=== PATIENT | male | born 1960 | race Caucasian/White ===

== ENCOUNTER 2018-04-22 21:05 | Emergency (ER) | payer MEDICARE ==
[~2018-04-22] VITALS: Ht 182.9 cm; Wt 116.3 kg
[~2018-04-22 21:05] MED LIST: BENZ2AMP4 PO; CLON2TAB9 PO; HALO5AMP3 PO
[2018-04-22 21:10] VITALS: BP 136/92
[2018-04-22] MEDS: THIAMINE 100MG TABLET PO ONE ×2 (21:30→21:33)
[2018-04-22] MEDS ORDERED: THIAMINE 100MG TABLET ONE (21:32)
[2018-04-22 21:42] LABS: BASOPHILS # (AUTO) 0.04 x10^3/uL (0-0.1); BASOPHILS % (AUTO) 1 % (0-1); EOSINOPHILS % (AUTO) 2 % (1-7); LYMPHOCYTES # (AUTO) 2.58 x10^3/uL (1-3.4); LYMPHOCYTES % (AUTO) 47 % (22-44); MD NO; MEAN CORPUSCULAR HEMOGLOBIN 32.4 pg (27.5-34.5); MEAN CORPUSCULAR HGB CONC 33.4 g/dL (33.2-36.2); MEAN CORPUSCULAR VOLUME 96.9 fL (81-97); MONOCYTES # (AUTO) 0.56 x10^3/uL (0.2-0.8); MONOCYTES % (AUTO) 10 % (2-9); NEUTROPHILS # (AUTO) 2.18 x10^3/uL (1.8-6.8); NEUTROPHILS % (AUTO) 40 % (42-75); PLATELET COUNT 228 x10^3/uL (130-400); RED BLOOD COUNT 4.06 x10^6/uL (4.38-5.82); RED CELL DISTRIBUTION WIDTH 18.5 % (9.4-14.8)
[2018-04-22] MEDS ORDERED: IBUPROFEN 200 MG TABLET ONE (21:48)
[2018-04-22 21:52] LABS: ALANINE AMINOTRANSFERASE 24 U/L (12-78); ALBUMIN 3.2 g/dL (3.4-5.0); ANION GAP 8 mmol/L (5-15); CALCIUM 8.5 mg/dL (8.5-10.1); CHLORIDE 111 mmol/L (98-107); CREATININE 1.08 mg/dL (0.7-1.3)
[2018-04-22 21:54] LABS: ALKALINE PHOSPHATASE 92 U/L (45-117); BILIRUBIN,TOTAL 0.2 mg/dL (0.2-1.0); TOTAL PROTEIN 7.7 g/dL (6.4-8.2)
== END 2018-04-22 23:34 | disposition home or self-care (01) ==
LOC: ED 23:31
DX: F10.220 Alcohol dependence with intoxication, uncomplicated (principal)
CPT/HCPCS: 36415; 80053; 85025; 99284

== ENCOUNTER → 2018-11-11 | Outpatient (CLI) | payer MEDICARE ==
[~2018-11-11] MED LIST changes: +CARB200T PO; +CITA20TA9 PO; +DOXE100C PO; +HYDR-3241 PO; +LISI-170 PO; +MELO15TA24 PO; +METH20TA PO; +PREG25CA PO; +TIZA2TAB PO; +ZIPR80CA2 PO
[2018-11-11 11:56] LABS: ALBUMIN 3.6 g/dL (3.4-5.0); ANION GAP 6 mmol/L (5-15); CALCIUM 8.5 mg/dL (8.5-10.1); CHLORIDE 107 mmol/L (98-107)
[2018-11-11 11:59] LABS: ALANINE AMINOTRANSFERASE 15 U/L (12-78); ALKALINE PHOSPHATASE 64 U/L (45-117); BILIRUBIN,TOTAL 0.2 mg/dL (0.2-1.0); CREATININE 1.58 mg/dL (0.7-1.3); TOTAL PROTEIN 7.1 g/dL (6.4-8.2)
== END | disposition home or self-care (01) ==
LOC: STAR 10:53
PROVIDERS: ATTEND Orthopaedic Surgery
DX: Z01.818 Encounter for other preprocedural examination (principal); S82.62XP Displaced fracture of lateral malleolus of left fibula, subsequent encounter for closed fracture with malunion; X58.XXXD Exposure to other specified factors, subsequent encounter
CPT/HCPCS: 36415; 80053; 87081

== ENCOUNTER 2018-11-15 12:00 | Day surgery (SDC) | payer MEDICARE ==
[~2018-11-15] VITALS: Ht 182.9 cm; Wt 124.2 kg
[~2018-11-15 12:00] MED LIST changes: -TIZA2TAB PO
[2018-11-15 12:25] VITALS: BP 119/85
[2018-11-15] MEDS ORDERED: LACTATED RINGERS 1,000 ML IV SCH (12:29)
[2018-11-15] MEDS ORDERED: TIZA2TAB PO (12:32)
[2018-11-15] MEDS ORDERED: GABAPENTIN 300 MG CAPSULE ONE (14:05)
[2018-11-15] MEDS ORDERED: ONDANSETRON ODT 8 MG ONE (14:06)
[2018-11-15] MEDS ORDERED: DIAZEPAM 5 MG TABLET ONE (14:06)
[2018-11-15] MEDS ORDERED: BUPIVACAINE/PF 0.5% ONE ×2 (14:18→16:26)
[2018-11-15] MEDS ORDERED: BUPIVACAINE/PF-EPI 0.5% 1:200K ONE (14:18)
[2018-11-15] MEDS ORDERED: GABAPENTIN 300 MG CAPSULE PO ONE (14:30)
[2018-11-15] MEDS ORDERED: ONDANSETRON ODT 8 MG PO ONE (14:30)
[2018-11-15] MEDS ORDERED: DIAZEPAM 5 MG TABLET PO ONE (14:30)
[2018-11-15] MEDS ORDERED: MIDAZOLAM 1 MG/ML, 2ML ONE (14:44)
[2018-11-15] MEDS ORDERED: FENTANYL PF 250 MCG/5ML ONE (14:44)
[2018-11-15] MEDS ORDERED: ROCURONIUM 10 MG/ML,10ML ONE (14:59)
[2018-11-15] MEDS ORDERED: EPHEDRINE 50 MG/ML, 1ML ONE (14:59)
[2018-11-15] MEDS ORDERED: PROPOFOL 10 MG/ML, 20ML ONE (14:59)
[2018-11-15] MEDS ORDERED: VASOPRESSIN 20 UNIT/ML, 1ML ONE (14:59)
[2018-11-15] MEDS ORDERED: CEFAZOLIN 1,000 MG ONE (14:59)
[2018-11-15] MEDS ORDERED: SUCCINYLCHOLINE 20 MG/ML, 10ML ONE (14:59)
[2018-11-15] MEDS ORDERED: DEXAMETHASONE 4 MG/ML, 1ML ONE (14:59)
[2018-11-15] MEDS ORDERED: EPINEPHRINE 1 MG/ML, 1ML ONE (14:59)
[2018-11-15] MEDS ORDERED: OXYcodone 5 MG/5 ML ORAL.SOL UDC PO PRN (16:00)
[2018-11-15] MEDS ORDERED: PROMETHAZINE 25 MG/ML, 1ML IV PRN (16:00)
[2018-11-15] MEDS ORDERED: HYDROmorphone 2 MG/ML, 1ML IVPush PRN (16:00)
[2018-11-15] MEDS ORDERED: ALBUTEROL/IPRATROPIUM 2.5MG/0.5MG, 3 ML NPPB PRN (16:00)
[2018-11-15] MEDS ORDERED: ONDANSETRON 2MG/ML, 2ML IV PRN (16:00)
[2018-11-15] MEDS ORDERED: hydrALAzine 20 MG/ML, 1ML IV PRN (16:00)
[2018-11-15] MEDS ORDERED: MIDAZOLAM 1 MG/ML, 2ML IV PRN (16:00)
[2018-11-15] MEDS ORDERED: ACETAMINOPHEN 325 MG TABLET PO PRN (16:00)
[2018-11-15] MEDS ORDERED: FENTANYL PF 100 MCG/2ML IV PRN (16:00)
[2018-11-15] MEDS ORDERED: SCOPOLAMINE PATCH, 1.5MG PATCH.TD72 TD PRN (16:00)
[2018-11-15] MEDS ORDERED: MEPERIDINE/PF 25MG/0.5ML IVPush PRN (16:00)
[2018-11-15] MEDS ORDERED: OXYcodone 5 MG/5 ML ORAL.SOL UDC ONE (17:10)
== END 2018-11-15 20:35 | disposition home or self-care (01) ==
LOC: OUT 12:00
PROVIDERS: ATTEND Orthopaedic Surgery
DX: S82.62XP Displaced fracture of lateral malleolus of left fibula, subsequent encounter for closed fracture with malunion (principal); S93.492D Sprain of other ligament of left ankle, subsequent encounter; S93.412D Sprain of calcaneofibular ligament of left ankle, subsequent encounter; M66.372 Spontaneous rupture of flexor tendons, left ankle and foot; M25.872 Other specified joint disorders, left ankle and foot; F41.8 Other specified anxiety disorders; F90.9 Attention-deficit hyperactivity disorder, unspecified type; I10 Essential (primary) hypertension; E66.9 Obesity, unspecified; Z68.37 Body mass index [BMI] 37.0-37.9, adult; Z79.891 Long term (current) use of opiate analgesic; Z79.899 Other long term (current) drug therapy; Z87.891 Personal history of nicotine dependence; Z98.890 Other specified postprocedural states; Z82.49 Family history of ischemic heart disease and other diseases of the circulatory system; Z79.1 Long term (current) use of non-steroidal anti-inflammatories (NSAID); X58.XXXD Exposure to other specified factors, subsequent encounter; Y93.89 Activity, other specified; Y92.89 Other specified places as the place of occurrence of the external cause; Y99.8 Other external cause status
CPT/HCPCS: 27698; 27792; 28200; 29898; 64445; 64447; 73600; 76000; C1713; J0171; J0330; J0690; J1100; J2250; J2704; J3010; J7120; Q0162

== ENCOUNTER 2018-11-29 14:46 | Day surgery (SDC) | payer MEDICARE ==
[~2018-11-29] VITALS: Ht 182.9 cm; Wt 126.8 kg
[~2018-11-29 14:46] MED LIST changes: +TIZA2TAB PO
[2018-11-29 15:35] VITALS: BP 146/93
[2018-11-29] MEDS ORDERED: LACTATED RINGERS 1,000 ML IV SCH (15:37)
[2018-11-29] MEDS ORDERED: OXYC5CAP2 PO (15:42)
[2018-11-29] MEDS ORDERED: CLON1TAB23 PO (15:42)
[2018-11-29] MEDS ORDERED: TIZA2TAB PO (15:44)
[2018-11-29] MEDS ORDERED: ZIPR80CA3 PO (15:44)
[2018-11-29] MEDS ORDERED: TRAM50TA2 PO (15:44)
[2018-11-29] MEDS ORDERED: ACETAMINOPHEN 500 MG TABLET PO ONE (16:00)
[2018-11-29] MEDS ORDERED: PLEASE ENTER HEIGHT AND WEIGHT MC SCH (16:00)
[2018-11-29] MEDS ORDERED: GABAPENTIN 300 MG CAPSULE PO ONE (16:00)
[2018-11-29] MEDS ORDERED: FENTANYL PF 100 MCG/2ML ONE ×5 (16:27→19:49)
[2018-11-29] MEDS ORDERED: MIDAZOLAM 1 MG/ML, 2ML ONE (16:27)
[2018-11-29] MEDS ORDERED: PROPOFOL 10 MG/ML, 20ML ONE (16:29)
[2018-11-29] MEDS ORDERED: SODIUM CHLORIDE 0.9% PF 10ML ONE (16:30)
[2018-11-29] MEDS ORDERED: CEFAZOLIN 1,000 MG ONE ×2 (16:30)
[2018-11-29] MEDS ORDERED: BUPIVACAINE/PF 0.5% ONE (16:33)
[2018-11-29] MEDS ORDERED: ROCURONIUM 10 MG/ML,10ML ONE (17:09)
[2018-11-29] MEDS ORDERED: GLYCOPYRROLATE 0.2MG/1ML, 5ML ONE (17:09)
[2018-11-29] MEDS ORDERED: NEOSTIGMINE 1 MG/ML, 10ML ONE (17:09)
[2018-11-29] MEDS ORDERED: ONDANSETRON 2MG/ML, 2ML IV PRN (17:30)
[2018-11-29] MEDS ORDERED: LABETALOL 5MG/ML, 20ML IV PRN (17:30)
[2018-11-29] MEDS ORDERED: MORPHINE SULFATE 4 MG/ML, 1ML IVPush PRN (17:30)
[2018-11-29] MEDS ORDERED: PROMETHAZINE 12.5 MG SUPP PR PRN (17:30)
[2018-11-29] MEDS ORDERED: hydrALAzine 20 MG/ML, 1ML IV PRN (17:30)
[2018-11-29] MEDS ORDERED: ONDANSETRON ODT 8 MG PO PRN (17:30)
[2018-11-29] MEDS ORDERED: PROMETHAZINE 25 MG SUPP PR PRN (17:30)
[2018-11-29] MEDS ORDERED: PROMETHAZINE 25 MG/ML, 1ML IM PRN ×2 (17:30)
[2018-11-29] MEDS ORDERED: PROMETHAZINE 25 MG/ML, 1ML IV PRN (17:30)
[2018-11-29] MEDS ORDERED: FENTANYL PF 250 MCG/5ML ONE (17:46)
[2018-11-29] MEDS ORDERED: ROPIvacaine/PF 0.5%, 30 ML ONE (18:27)
[2018-11-29] MEDS ORDERED: OXYcodone 5 MG/5 ML ORAL.SOL UDC ONE (18:59)
[2018-11-29] MEDS ORDERED: MEPERIDINE/PF 25MG/ML,1ML ONE ×2 (19:00→19:19)
[2018-11-29] MEDS: MEPERIDINE/PF 25MG/0.5ML IVPush PRN ×2 (19:03→19:20)
[2018-11-29] MEDS: FENTANYL PF 100 MCG/2ML IV PRN ×5 (19:03→19:52)
[2018-11-29] MEDS ORDERED: HYDROmorphone 2 MG/ML, 1ML ONE (19:09)
[2018-11-29] MEDS: HYDROmorphone 2 MG/ML, 1ML IVPush PRN ×4 (19:10→19:47)
[2018-11-29] MEDS: OXYcodone 5 MG/5 ML ORAL.SOL UDC PO PRN ×2 (19:29→22:20)
== END 2018-11-29 23:04 | disposition home or self-care (01) ==
LOC: OR 14:46 → 4NOR 20:19 → OR 23:04
PROVIDERS: ATTEND Orthopaedic Surgery
DX: T84.223A Displacement of internal fixation device of bones of foot and toes, initial encounter (principal); S93.432D Sprain of tibiofibular ligament of left ankle, subsequent encounter; S93.422D Sprain of deltoid ligament of left ankle, subsequent encounter; I10 Essential (primary) hypertension; F41.8 Other specified anxiety disorders; F90.9 Attention-deficit hyperactivity disorder, unspecified type; F10.10 Alcohol abuse, uncomplicated; Z79.891 Long term (current) use of opiate analgesic; Z79.899 Other long term (current) drug therapy; Z82.49 Family history of ischemic heart disease and other diseases of the circulatory system; Z87.891 Personal history of nicotine dependence; Z98.890 Other specified postprocedural states; W18.39XD Other fall on same level, subsequent encounter; Y83.8 Other surgical procedures as the cause of abnormal reaction of the patient, or of later complication, without mention of misadventure at the time of the procedure
CPT/HCPCS: 27698; 27829; 64445; 64447; 73600; 76000; 87070; 87075; 87205; C1713; J0690; J1170; J2175; J2250; J2405; J2704; J2710; J2795; J3010; J7120; 87076; G0378

== ENCOUNTER 2019-01-10 14:50 | Inpatient (IN) | payer MEDICARE ==
[~2019-01-10] VITALS: Ht 182.9 cm; Wt 122.5 kg
[~2019-01-10 14:50] MED LIST changes: +CLON1TAB23 PO; +OXYC5CAP2 PO; -TIZA2TAB PO; +TIZA2TAB2 PO; +TRAM50TA2 PO; +ZIPR80CA3 PO
[2019-01-10] MEDS ORDERED: LACTATED RINGERS 1,000 ML IV SCH (15:19)
[2019-01-10] MEDS ORDERED: hydrALAzine 20 MG/ML, 1ML IV ONE ×2 (16:30→16:45)
[2019-01-10] MEDS: hydrALAzine 20 MG/ML, 1ML IV PRN ×3 (16:30→16:59)
[2019-01-10] MEDS ORDERED: HYDROmorphone 2 MG/ML, 1ML ONE ×3 (16:55→21:02)
[2019-01-10] MEDS: HYDROmorphone 1 MG/ML, 1ML INJ IV PRN ×4 (16:56→17:41)
[2019-01-10] MEDS ORDERED: FENTANYL PF 250 MCG/5ML ONE (17:58)
[2019-01-10] MEDS ORDERED: MIDAZOLAM 1 MG/ML, 2ML ONE (17:58)
[2019-01-10] MEDS ORDERED: PHENYLEPHRINE 10 MG/ML ONE (18:18)
[2019-01-10] MEDS ORDERED: EPHEDRINE 50 MG/ML, 1ML ONE (18:18)
[2019-01-10] MEDS ORDERED: SUCCINYLCHOLINE 20 MG/ML, 10ML ONE (18:18)
[2019-01-10] MEDS ORDERED: ROCURONIUM 10 MG/ML,10ML ONE (18:18)
[2019-01-10] MEDS ORDERED: HYDROmorphone 2 MG/ML, 1ML IV PRN (19:00)
[2019-01-10] MEDS ORDERED: hydrALAzine 20 MG/ML, 1ML IV PRN (19:30)
[2019-01-10] MEDS ORDERED: ACETAMINOPHEN 325 MG TABLET PO PRN (19:30)
[2019-01-10] MEDS ORDERED: PROMETHAZINE 25 MG/ML, 1ML IV PRN (19:30)
[2019-01-10] MEDS ORDERED: OXYcodone 5 MG/5 ML ORAL.SOL UDC PO PRN (19:30)
[2019-01-10] MEDS ORDERED: KETOROLAC 30 MG/1 ML IV PRN (19:30)
[2019-01-10] MEDS ORDERED: DIAZEPAM 5 MG/ML, 2ML IVPush PRN (19:30)
[2019-01-10] MEDS ORDERED: ALBUTEROL SULFATE 2.5 MG/3 ML NPPB PRN (19:30)
[2019-01-10] MEDS ORDERED: MEPERIDINE/PF 25MG/0.5ML IVPush PRN (19:30)
[2019-01-10] MEDS ORDERED: LABETALOL 5MG/ML, 20ML IV PRN (19:30)
[2019-01-10] MEDS ORDERED: FENTANYL PF 100 MCG/2ML ONE ×2 (19:42→20:21)
[2019-01-10] MEDS ORDERED: BUPIVACAINE/PF 0.5% ONE (19:44)
[2019-01-10] MEDS ORDERED: PROPOFOL 10 MG/ML, 20ML ONE (19:45)
[2019-01-10] MEDS ORDERED: LIDOCAINE-MPF 2% ,5ML ONE (19:45)
[2019-01-10] MEDS ORDERED: DEXAMETHASONE 4 MG/ML, 1ML ONE (19:45)
[2019-01-10] MEDS ORDERED: CEFAZOLIN 1,000 MG ONE (19:45)
[2019-01-10] MEDS ORDERED: ONDANSETRON 2MG/ML, 2ML ONE (19:45)
[2019-01-10] MEDS: FENTANYL PF 100 MCG/2ML IV PRN ×2 (20:25→20:35)
[2019-01-10] MEDS: HYDROmorphone 2 MG/ML, 1ML IVPush PRN ×5 (20:27→21:05)
[2019-01-10] MEDS ORDERED: MEPERIDINE/PF 25MG/ML,1ML ONE (20:45)
[2019-01-10] MEDS ORDERED: OXYcodone 5 MG/5 ML ORAL.SOL UDC ONE (20:45)
[2019-01-10] MEDS: LISINOPRIL 20 MG TABLET PO SCH (22:03)
[2019-01-10] MEDS ORDERED: ZIPRASIDONE 40MG CAPSULE PO SCH ×2 (22:11→22:15)
[2019-01-10] MEDS ORDERED: morphine SULFATE 10 MG/ML, 1ML ONE (22:19)
[2019-01-10] MEDS: morphine SULFATE 10 MG/ML, 1ML IV PRN (22:25)
[2019-01-10] MEDS ORDERED: PHARMACOKINETIC MONITORING MC PRN (22:30)
[2019-01-10] MEDS ORDERED: OXYcodone IR 5MG TABLET PO PRN (22:30)
[2019-01-10] MEDS ORDERED: VANCOMYCIN PER PHARMACY MC PRN (22:30)
[2019-01-10] MEDS: OXYcodone 5 MG/5 ML ORAL.SOL UDC PO PRN (22:48)
[2019-01-10] MEDS: KETOROLAC 30 MG/1 ML IV SCH (22:49)
[2019-01-10] MEDS: CARBAMAZEPINE 200 MG TABLET PO SCH (22:49)
[2019-01-10] MEDS: VANCOMYCIN 2,000 MG in SODIUM CHLORIDE 0.9% 500 ML IV SCH (22:59)
[2019-01-10] MEDS ORDERED: ONDANSETRON 2MG/ML, 2ML IV PRN (23:00)
[2019-01-10] MEDS ORDERED: PREG50CA PO (23:28)
[2019-01-10] MEDS ORDERED: TRAM50TA2 PO (23:28)
[2019-01-11] MEDS: morphine SULFATE 10 MG/ML, 1ML IV PRN ×7 (00:05→22:21)
[2019-01-11 00:06] VITALS: BP 146/90
[2019-01-11] MEDS: OXYcodone 5 MG/5 ML ORAL.SOL UDC PO PRN ×5 (03:46→21:00)
[2019-01-11 04:21] VITALS: BP 105/58
[2019-01-11 06:21] LABS: CREATININE 1.14 mg/dL (0.7-1.3)
[2019-01-11 06:28] VITALS: BP 102/65
[2019-01-11] MEDS: KETOROLAC 30 MG/1 ML IV SCH ×2 (06:33→14:59)
[2019-01-11] MEDS ORDERED: ZIPRASIDONE 20MG CAPSULE PO PRN (07:30)
[2019-01-11] MEDS: SODIUM CHLORIDE FLUSH 10ML SYR IVF SCH ×2 (09:19→20:55)
[2019-01-11] MEDS: PREGABALIN 25 MG CAPSULE PO SCH ×2 (09:19→20:56)
[2019-01-11] MEDS: TIZANIDINE 2MG TABLET PO SCH ×3 (09:20→20:58)
[2019-01-11] MEDS: METHYLPHENIDATE 5 MG TABLET PO SCH ×2 (09:20→20:57)
[2019-01-11] MEDS: CITALOPRAM 20 MG TABLET PO SCH (09:21)
[2019-01-11] MEDS: CARBAMAZEPINE 200 MG TABLET PO SCH ×2 (09:21→20:58)
[2019-01-11 10:02] LABS: BASOPHILS # (AUTO) 0.01 x10^3/uL (0-0.1); BASOPHILS % (AUTO) 0 % (0-1); EOSINOPHILS % (AUTO) 0 % (1-7); LYMPHOCYTES # (AUTO) 1.01 x10^3/uL (1-3.4); LYMPHOCYTES % (AUTO) 19 % (22-44); MD NO; MEAN CORPUSCULAR HEMOGLOBIN 29.9 pg (27.5-34.5); MEAN CORPUSCULAR HGB CONC 32.4 g/dL (33.2-36.2); MEAN CORPUSCULAR VOLUME 92.4 fL (81-97); MEAN PLATELET VOLUME 7.5 fL (7.4-10.4); MONOCYTES # (AUTO) 0.54 x10^3/uL (0.2-0.8); MONOCYTES % (AUTO) 10 % (2-9); NEUTROPHILS # (AUTO) 3.81 x10^3/uL (1.8-6.8); NEUTROPHILS % (AUTO) 71 % (42-75); PLATELET COUNT 248 x10^3/uL (130-400); RED BLOOD COUNT 3.26 x10^6/uL (4.38-5.82)
[2019-01-11 10:27] LABS: ALBUMIN 2.8 g/dL (3.4-5.0); ANION GAP 10 mmol/L (5-15); CALCIUM 8.4 mg/dL (8.5-10.1); CHLORIDE 107 mmol/L (98-107)
[2019-01-11 10:29] LABS: ALANINE AMINOTRANSFERASE 12 U/L (12-78); ALKALINE PHOSPHATASE 87 U/L (45-117); BILIRUBIN,TOTAL 0.6 mg/dL (0.2-1.0); CREATININE 1.14 mg/dL (0.7-1.3); TOTAL PROTEIN 6.3 g/dL (6.4-8.2)
[2019-01-11 12:14] LABS: HCT (SEDRATE) 32.9 % (39.2-51.8)
[2019-01-11 12:25] VITALS: BP 130/84
[2019-01-11] MEDS: VANCOMYCIN 2,000 MG in SODIUM CHLORIDE 0.9% 500 ML IV SCH (17:05)
[2019-01-11 18:40] VITALS: BP 148/79
[2019-01-11] MEDS: DOXEPIN 100 MG CAPSULE PO SCH (20:57)
[2019-01-11] MEDS: LISINOPRIL 20 MG TABLET PO SCH (20:57)
[2019-01-12 00:36] VITALS: BP 130/76
[2019-01-12] MEDS: OXYcodone 5 MG/5 ML ORAL.SOL UDC PO PRN ×5 (00:55→21:02)
[2019-01-12 07:48] VITALS: BP 157/94
[2019-01-12] MEDS: PREGABALIN 25 MG CAPSULE PO SCH ×2 (08:11→21:01)
[2019-01-12] MEDS: TIZANIDINE 2MG TABLET PO SCH ×3 (08:11→21:00)
[2019-01-12] MEDS: MELOXICAM 15 MG TABLET PO SCH (08:12)
[2019-01-12] MEDS: CARBAMAZEPINE 200 MG TABLET PO SCH ×2 (08:12→21:01)
[2019-01-12] MEDS: SODIUM CHLORIDE FLUSH 10ML SYR IVF SCH ×2 (08:12→21:00)
[2019-01-12] MEDS: METHYLPHENIDATE 5 MG TABLET PO SCH ×2 (08:12→21:00)
[2019-01-12] MEDS: CITALOPRAM 20 MG TABLET PO SCH (08:12)
[2019-01-12] MEDS: VANCOMYCIN 2,000 MG in SODIUM CHLORIDE 0.9% 500 ML IV SCH (11:08)
[2019-01-12 13:47] VITALS: BP 145/87
[2019-01-12] MEDS: morphine SULFATE 10 MG/ML, 1ML IV PRN ×3 (14:20→22:32)
[2019-01-12 19:59] VITALS: BP 130/77
[2019-01-12] MEDS ORDERED: TIZANIDINE 4MG TABLET ONE (20:57)
[2019-01-12] MEDS: DOXEPIN 100 MG CAPSULE PO SCH (21:01)
[2019-01-12] MEDS: LISINOPRIL 20 MG TABLET PO SCH (21:01)
[2019-01-13 02:08] VITALS: BP 148/84
[2019-01-13 04:40] LABS: BASOPHILS # (AUTO) 0.03 x10^3/uL (0-0.1); BASOPHILS % (AUTO) 1 % (0-1); EOSINOPHILS # (AUTO) 0.14 x10^3/uL (0-0.4); EOSINOPHILS % (AUTO) 3 % (1-7); LYMPHOCYTES # (AUTO) 1.18 x10^3/uL (1-3.4); LYMPHOCYTES % (AUTO) 26 % (22-44); MD NO; MEAN CORPUSCULAR HEMOGLOBIN 30.9 pg (27.5-34.5); MEAN CORPUSCULAR VOLUME 93.8 fL (81-97); MEAN PLATELET VOLUME 7.2 fL (7.4-10.4); MONOCYTES # (AUTO) 0.55 x10^3/uL (0.2-0.8); MONOCYTES % (AUTO) 12 % (2-9); NEUTROPHILS # (AUTO) 2.63 x10^3/uL (1.8-6.8); NEUTROPHILS % (AUTO) 58 % (42-75); PLATELET COUNT 297 x10^3/uL (130-400); RED BLOOD COUNT 3.26 x10^6/uL (4.38-5.82); RED CELL DISTRIBUTION WIDTH 15.1 % (9.4-14.8)
[2019-01-13 04:46] LABS: ALBUMIN 2.6 g/dL (3.4-5.0); ANION GAP 6 mmol/L (5-15); CALCIUM 8.7 mg/dL (8.5-10.1); CHLORIDE 106 mmol/L (98-107); CREATININE 0.91 mg/dL (0.7-1.3)
[2019-01-13] MEDS: VANCOMYCIN 2,000 MG in SODIUM CHLORIDE 0.9% 500 ML IV SCH (04:54)
[2019-01-13] MEDS: OXYcodone 5 MG/5 ML ORAL.SOL UDC PO PRN ×5 (05:02→21:29)
[2019-01-13 07:15] VITALS: BP 143/95
[2019-01-13] MEDS: TIZANIDINE 2MG TABLET PO SCH ×3 (08:04→20:31)
[2019-01-13] MEDS: METHYLPHENIDATE 5 MG TABLET PO SCH ×2 (08:04→20:56)
[2019-01-13] MEDS: PREGABALIN 25 MG CAPSULE PO SCH ×2 (08:04→20:31)
[2019-01-13] MEDS: MELOXICAM 15 MG TABLET PO SCH (08:04)
[2019-01-13] MEDS: CITALOPRAM 20 MG TABLET PO SCH (08:04)
[2019-01-13] MEDS: SODIUM CHLORIDE FLUSH 10ML SYR IVF SCH ×2 (08:04→20:33)
[2019-01-13] MEDS: CARBAMAZEPINE 200 MG TABLET PO SCH ×2 (08:04→20:31)
[2019-01-13] MEDS ORDERED: POTASSIUM CHLORIDE 20 MEQ TAB.ER.PRT PO ONE (08:30)
[2019-01-13] MEDS: AMPICILLIN/SULBACTAM 3 GM in SODIUM CHLORIDE 0.9% 100 ML IV SCH ×3 (11:42→23:31)
[2019-01-13 12:25] VITALS: BP 139/87
[2019-01-13] MEDS: DOXEPIN 100 MG CAPSULE PO SCH (20:30)
[2019-01-13 20:36] VITALS: BP 156/94
[2019-01-13] MEDS: LISINOPRIL 20 MG TABLET PO SCH (20:39)
[2019-01-14 01:41] VITALS: BP 137/87
[2019-01-14] MEDS: OXYcodone 5 MG/5 ML ORAL.SOL UDC PO PRN ×5 (03:53→20:50)
[2019-01-14] MEDS: AMPICILLIN/SULBACTAM 3 GM in SODIUM CHLORIDE 0.9% 100 ML IV SCH ×4 (05:39→23:41)
[2019-01-14 07:05] VITALS: BP 163/103
[2019-01-14] MEDS: PREGABALIN 25 MG CAPSULE PO SCH ×2 (08:42→20:48)
[2019-01-14] MEDS: CITALOPRAM 20 MG TABLET PO SCH (08:42)
[2019-01-14] MEDS: TIZANIDINE 2MG TABLET PO SCH ×3 (08:42→20:49)
[2019-01-14] MEDS: CARBAMAZEPINE 200 MG TABLET PO SCH ×2 (08:43→20:49)
[2019-01-14] MEDS: MELOXICAM 15 MG TABLET PO SCH (08:43)
[2019-01-14] MEDS: METHYLPHENIDATE 5 MG TABLET PO SCH ×2 (08:51→14:16)
[2019-01-14] MEDS: SODIUM CHLORIDE FLUSH 10ML SYR IVF SCH ×2 (09:00→20:55)
[2019-01-14 13:50] VITALS: BP 143/89
[2019-01-14] MEDS ORDERED: POLYETHYLENE GLYCOL 17 GM PACKET PO PRN (14:00)
[2019-01-14] MEDS ORDERED: MAGNESIUM HYDROXIDE 8%, 30ML UDC PO PRN (14:00)
[2019-01-14] MEDS ORDERED: BISACODYL 10 MG SUPP PR PRN (14:00)
[2019-01-14] MEDS ORDERED: LACTULOSE 20 GM/30 ML UDC PO PRN (14:00)
[2019-01-14] MEDS ORDERED: MAGNESIUM CITRATE 300ML ORAL SOL PO PRN ×2 (14:00)
[2019-01-14] MEDS: SENNA/DOCUSATE TABLET PO PRN (14:16)
[2019-01-14 19:42] VITALS: BP 154/95
[2019-01-14] MEDS: DOXEPIN 100 MG CAPSULE PO SCH (20:48)
[2019-01-14] MEDS: LISINOPRIL 20 MG TABLET PO SCH (20:49)
[2019-01-15] MEDS: OXYcodone 5 MG/5 ML ORAL.SOL UDC PO PRN ×5 (01:28→20:09)
[2019-01-15 01:30] VITALS: BP 133/82
[2019-01-15 05:00] LABS: BASOPHILS # (AUTO) 0.03 x10^3/uL (0-0.1); BASOPHILS % (AUTO) 1 % (0-1); EOSINOPHILS # (AUTO) 0.13 x10^3/uL (0-0.4); EOSINOPHILS % (AUTO) 3 % (1-7); LYMPHOCYTES % (AUTO) 29 % (22-44); MD NO; MEAN CORPUSCULAR HEMOGLOBIN 30.9 pg (27.5-34.5); MEAN CORPUSCULAR HGB CONC 33.3 g/dL (33.2-36.2); MEAN PLATELET VOLUME 7.7 fL (7.4-10.4); MONOCYTES # (AUTO) 0.46 x10^3/uL (0.2-0.8); MONOCYTES % (AUTO) 11 % (2-9); NEUTROPHILS # (AUTO) 2.38 x10^3/uL (1.8-6.8); NEUTROPHILS % (AUTO) 57 % (42-75); PLATELET COUNT 312 x10^3/uL (130-400); RED BLOOD COUNT 3.39 x10^6/uL (4.38-5.82); RED CELL DISTRIBUTION WIDTH 15.1 % (9.4-14.8)
[2019-01-15 05:10] LABS: ALBUMIN 2.8 g/dL (3.4-5.0); ANION GAP 5 mmol/L (5-15); CALCIUM 9.1 mg/dL (8.5-10.1); CHLORIDE 107 mmol/L (98-107)
[2019-01-15 05:14] LABS: ALANINE AMINOTRANSFERASE 10 U/L (12-78); ALKALINE PHOSPHATASE 123 U/L (45-117); BILIRUBIN,TOTAL 0.4 mg/dL (0.2-1.0); CREATININE 1.05 mg/dL (0.7-1.3); TOTAL PROTEIN 6.4 g/dL (6.4-8.2)
[2019-01-15] MEDS: AMPICILLIN/SULBACTAM 3 GM in SODIUM CHLORIDE 0.9% 100 ML IV SCH ×4 (05:21→23:29)
[2019-01-15 08:39] VITALS: BP 145/78
[2019-01-15] MEDS: SODIUM CHLORIDE FLUSH 10ML SYR IVF SCH ×2 (09:00→20:08)
[2019-01-15] MEDS: ENOXAPARIN 40 MG/0.4 ML SQ SCH (09:17)
[2019-01-15] MEDS: METHYLPHENIDATE 5 MG TABLET PO SCH ×2 (09:17→20:11)
[2019-01-15] MEDS: CARBAMAZEPINE 200 MG TABLET PO SCH ×2 (09:18→20:18)
[2019-01-15] MEDS: TIZANIDINE 2MG TABLET PO SCH ×3 (09:18→20:09)
[2019-01-15] MEDS: PREGABALIN 25 MG CAPSULE PO SCH ×2 (09:18→20:18)
[2019-01-15] MEDS: MELOXICAM 15 MG TABLET PO SCH (09:18)
[2019-01-15] MEDS: CITALOPRAM 20 MG TABLET PO SCH (09:18)
[2019-01-15 14:02] VITALS: BP 153/102
[2019-01-15 14:47] VITALS: BP 139/88
[2019-01-15 19:06] VITALS: BP 130/75
[2019-01-15] MEDS: LISINOPRIL 20 MG TABLET PO SCH (20:09)
[2019-01-15] MEDS: DOXEPIN 100 MG CAPSULE PO SCH (20:09)
[2019-01-16] MEDS: OXYcodone 5 MG/5 ML ORAL.SOL UDC PO PRN ×6 (00:11→21:35)
[2019-01-16 01:37] VITALS: BP 121/80
[2019-01-16 05:11] LABS: ALBUMIN 2.6 g/dL (3.4-5.0); ANION GAP 6 mmol/L (5-15); CALCIUM 8.5 mg/dL (8.5-10.1); CHLORIDE 106 mmol/L (98-107)
[2019-01-16 05:13] LABS: HCT (SEDRATE) 30.6 % (39.2-51.8)
[2019-01-16 05:17] LABS: BASOPHILS # (AUTO) 0.04 x10^3/uL (0-0.1); BASOPHILS % (AUTO) 1 % (0-1); EOSINOPHILS # (AUTO) 0.17 x10^3/uL (0-0.4); EOSINOPHILS % (AUTO) 4 % (1-7); LYMPHOCYTES # (AUTO) 1.45 x10^3/uL (1-3.4); LYMPHOCYTES % (AUTO) 35 % (22-44); MD NO; MEAN CORPUSCULAR HEMOGLOBIN 30.9 pg (27.5-34.5); MEAN CORPUSCULAR HGB CONC 33.2 g/dL (33.2-36.2); MONOCYTES # (AUTO) 0.41 x10^3/uL (0.2-0.8); MONOCYTES % (AUTO) 10 % (2-9); NEUTROPHILS # (AUTO) 2.05 x10^3/uL (1.8-6.8); NEUTROPHILS % (AUTO) 50 % (42-75); PLATELET COUNT 312 x10^3/uL (130-400); RED BLOOD COUNT 3.28 x10^6/uL (4.38-5.82); RED CELL DISTRIBUTION WIDTH 15.6 % (9.4-14.8)
[2019-01-16 05:19] LABS: ALANINE AMINOTRANSFERASE 11 U/L (12-78); ALKALINE PHOSPHATASE 112 U/L (45-117); BILIRUBIN,TOTAL 0.4 mg/dL (0.2-1.0); CREATININE 0.98 mg/dL (0.7-1.3); TOTAL PROTEIN 6.2 g/dL (6.4-8.2)
[2019-01-16] MEDS: AMPICILLIN/SULBACTAM 3 GM in SODIUM CHLORIDE 0.9% 100 ML IV SCH ×4 (05:34→23:17)
[2019-01-16 06:44] VITALS: BP 159/107
[2019-01-16] MEDS: CITALOPRAM 20 MG TABLET PO SCH (08:29)
[2019-01-16] MEDS: MELOXICAM 15 MG TABLET PO SCH (08:31)
[2019-01-16] MEDS: PREGABALIN 25 MG CAPSULE PO SCH ×2 (08:31→21:34)
[2019-01-16] MEDS: TIZANIDINE 2MG TABLET PO SCH ×3 (08:31→21:35)
[2019-01-16] MEDS: METHYLPHENIDATE 5 MG TABLET PO SCH ×2 (08:32→15:47)
[2019-01-16] MEDS: ENOXAPARIN 40 MG/0.4 ML SQ SCH (08:32)
[2019-01-16] MEDS: CARBAMAZEPINE 200 MG TABLET PO SCH ×2 (08:32→21:34)
[2019-01-16] MEDS: SODIUM CHLORIDE FLUSH 10ML SYR IVF SCH ×2 (08:33→21:34)
[2019-01-16] MEDS ORDERED: TIZANIDINE 4MG TABLET ONE (08:39)
[2019-01-16 08:47] VITALS: BP 154/88
[2019-01-16 12:32] VITALS: BP 125/73
[2019-01-16 18:43] VITALS: BP 152/104
[2019-01-16] MEDS: DOXEPIN 100 MG CAPSULE PO SCH (21:34)
[2019-01-16] MEDS: LISINOPRIL 20 MG TABLET PO SCH (21:34)
[2019-01-17 00:15] VITALS: BP 136/84
[2019-01-17] MEDS: OXYcodone 5 MG/5 ML ORAL.SOL UDC PO PRN ×6 (01:48→22:07)
[2019-01-17] MEDS: AMPICILLIN/SULBACTAM 3 GM in SODIUM CHLORIDE 0.9% 100 ML IV SCH ×4 (05:03→23:37)
[2019-01-17 07:26] VITALS: BP 146/90
[2019-01-17] MEDS: METHYLPHENIDATE 5 MG TABLET PO SCH ×2 (09:00→15:29)
[2019-01-17] MEDS: CITALOPRAM 20 MG TABLET PO SCH (09:28)
[2019-01-17] MEDS: ENOXAPARIN 40 MG/0.4 ML SQ SCH (09:28)
[2019-01-17] MEDS: PREGABALIN 25 MG CAPSULE PO SCH ×2 (09:28→21:33)
[2019-01-17] MEDS: SODIUM CHLORIDE FLUSH 10ML SYR IVF SCH ×2 (09:28→21:33)
[2019-01-17] MEDS: TIZANIDINE 2MG TABLET PO SCH ×3 (09:29→21:34)
[2019-01-17] MEDS: MELOXICAM 15 MG TABLET PO SCH (09:29)
[2019-01-17] MEDS: CARBAMAZEPINE 200 MG TABLET PO SCH ×2 (09:29→21:34)
[2019-01-17 13:50] VITALS: BP 145/95
[2019-01-17 18:46] VITALS: BP 137/85
[2019-01-17] MEDS: LISINOPRIL 20 MG TABLET PO SCH (21:34)
[2019-01-17] MEDS: DOXEPIN 100 MG CAPSULE PO SCH (21:34)
[2019-01-18 02:16] VITALS: BP 113/74
[2019-01-18] MEDS: OXYcodone 5 MG/5 ML ORAL.SOL UDC PO PRN ×6 (02:30→22:49)
[2019-01-18] MEDS: AMPICILLIN/SULBACTAM 3 GM in SODIUM CHLORIDE 0.9% 100 ML IV SCH ×4 (05:07→23:34)
[2019-01-18 07:31] VITALS: BP 142/89
[2019-01-18] MEDS: METHYLPHENIDATE 5 MG TABLET PO SCH ×2 (09:00→15:14)
[2019-01-18] MEDS: SODIUM CHLORIDE FLUSH 10ML SYR IVF SCH ×2 (09:18→20:37)
[2019-01-18] MEDS: ENOXAPARIN 40 MG/0.4 ML SQ SCH (09:18)
[2019-01-18] MEDS: PREGABALIN 25 MG CAPSULE PO SCH ×2 (09:19→20:36)
[2019-01-18] MEDS: CITALOPRAM 20 MG TABLET PO SCH (09:19)
[2019-01-18] MEDS: MELOXICAM 15 MG TABLET PO SCH (09:19)
[2019-01-18] MEDS: TIZANIDINE 2MG TABLET PO SCH ×3 (09:20→20:36)
[2019-01-18] MEDS: CARBAMAZEPINE 200 MG TABLET PO SCH ×2 (09:21→20:36)
[2019-01-18] MEDS: SENNA/DOCUSATE TABLET PO PRN (09:23)
[2019-01-18 14:16] VITALS: BP 121/69
[2019-01-18 19:08] VITALS: BP 144/93
[2019-01-18] MEDS: LISINOPRIL 20 MG TABLET PO SCH (20:36)
[2019-01-18] MEDS: DOXEPIN 100 MG CAPSULE PO SCH (20:36)
[2019-01-19] MEDS: OXYcodone 5 MG/5 ML ORAL.SOL UDC PO PRN ×4 (02:58→20:23)
[2019-01-19 03:49] VITALS: BP 131/79
[2019-01-19] MEDS: AMPICILLIN/SULBACTAM 3 GM in SODIUM CHLORIDE 0.9% 100 ML IV SCH ×4 (05:21→23:55)
[2019-01-19 07:20] VITALS: BP 137/85
[2019-01-19] MEDS: ENOXAPARIN 40 MG/0.4 ML SQ SCH (08:42)
[2019-01-19] MEDS: METHYLPHENIDATE 5 MG TABLET PO SCH ×2 (08:42→20:01)
[2019-01-19] MEDS: TIZANIDINE 2MG TABLET PO SCH ×3 (08:42→20:00)
[2019-01-19] MEDS: MELOXICAM 15 MG TABLET PO SCH (08:42)
[2019-01-19] MEDS: CARBAMAZEPINE 200 MG TABLET PO SCH ×2 (08:43→20:00)
[2019-01-19] MEDS: PREGABALIN 25 MG CAPSULE PO SCH ×2 (08:43→20:00)
[2019-01-19] MEDS: SODIUM CHLORIDE FLUSH 10ML SYR IVF SCH ×2 (08:43→20:00)
[2019-01-19] MEDS: CITALOPRAM 20 MG TABLET PO SCH (08:43)
[2019-01-19] MEDS: HYDROcodone/APAP 10/325 MG TABLET PO PRN (11:44)
[2019-01-19 13:40] VITALS: BP 133/72
[2019-01-19] MEDS: DOXEPIN 100 MG CAPSULE PO SCH (20:00)
[2019-01-19] MEDS: LISINOPRIL 20 MG TABLET PO SCH (20:00)
[2019-01-19 20:33] VITALS: BP 143/87
[2019-01-20] MEDS: OXYcodone 5 MG/5 ML ORAL.SOL UDC PO PRN ×6 (00:26→20:35)
[2019-01-20 02:23] VITALS: BP 135/78
[2019-01-20] MEDS: AMPICILLIN/SULBACTAM 3 GM in SODIUM CHLORIDE 0.9% 100 ML IV SCH ×3 (05:57→17:49)
[2019-01-20 07:25] VITALS: BP 123/78
[2019-01-20] MEDS ORDERED: TIZANIDINE 4MG TABLET ONE ×2 (08:05→20:30)
[2019-01-20] MEDS: CARBAMAZEPINE 200 MG TABLET PO SCH ×2 (08:12→20:35)
[2019-01-20] MEDS: TIZANIDINE 2MG TABLET PO SCH ×3 (08:12→20:35)
[2019-01-20] MEDS: ENOXAPARIN 40 MG/0.4 ML SQ SCH (08:12)
[2019-01-20] MEDS: METHYLPHENIDATE 5 MG TABLET PO SCH ×2 (08:13→15:10)
[2019-01-20] MEDS: CITALOPRAM 20 MG TABLET PO SCH (08:14)
[2019-01-20] MEDS: MELOXICAM 15 MG TABLET PO SCH (08:14)
[2019-01-20] MEDS: PREGABALIN 25 MG CAPSULE PO SCH ×2 (08:14→20:35)
[2019-01-20] MEDS: SODIUM CHLORIDE FLUSH 10ML SYR IVF SCH ×2 (08:17→20:36)
[2019-01-20 13:05] VITALS: BP 126/74
[2019-01-20 20:22] VITALS: BP 159/92
[2019-01-20] MEDS: DOXEPIN 100 MG CAPSULE PO SCH (20:35)
[2019-01-20] MEDS: LISINOPRIL 20 MG TABLET PO SCH (20:36)
[2019-01-21] MEDS: OXYcodone 5 MG/5 ML ORAL.SOL UDC PO PRN ×5 (01:23→21:07)
[2019-01-21 01:42] VITALS: BP 111/63
[2019-01-21] MEDS: AMPICILLIN/SULBACTAM 3 GM in SODIUM CHLORIDE 0.9% 100 ML IV SCH ×4 (06:36→18:02)
[2019-01-21 06:54] LABS: BASOPHILS # (AUTO) 0.03 x10^3/uL (0-0.1); BASOPHILS % (AUTO) 1 % (0-1); EOSINOPHILS # (AUTO) 0.16 x10^3/uL (0-0.4); EOSINOPHILS % (AUTO) 4 % (1-7); LYMPHOCYTES % (AUTO) 34 % (22-44); MD NO; MEAN CORPUSCULAR HEMOGLOBIN 30.2 pg (27.5-34.5); MEAN CORPUSCULAR HGB CONC 33.1 g/dL (33.2-36.2); MEAN CORPUSCULAR VOLUME 91.3 fL (81-97); MEAN PLATELET VOLUME 7.3 fL (7.4-10.4); MONOCYTES # (AUTO) 0.37 x10^3/uL (0.2-0.8); MONOCYTES % (AUTO) 9 % (2-9); NEUTROPHILS # (AUTO) 2.11 x10^3/uL (1.8-6.8); NEUTROPHILS % (AUTO) 52 % (42-75); PLATELET COUNT 360 x10^3/uL (130-400); RED BLOOD COUNT 3.59 x10^6/uL (4.38-5.82); RED CELL DISTRIBUTION WIDTH 14.9 % (9.4-14.8)
[2019-01-21 07:02] LABS: ALANINE AMINOTRANSFERASE 12 U/L (12-78); ANION GAP 6 mmol/L (5-15); CALCIUM 9.2 mg/dL (8.5-10.1); CHLORIDE 107 mmol/L (98-107); CREATININE 1.07 mg/dL (0.7-1.3)
[2019-01-21 07:05] LABS: ALKALINE PHOSPHATASE 121 U/L (45-117); BILIRUBIN,TOTAL 0.2 mg/dL (0.2-1.0); TOTAL PROTEIN 6.5 g/dL (6.4-8.2)
[2019-01-21 08:16] VITALS: BP 153/83
[2019-01-21] MEDS ORDERED: TIZANIDINE 4MG TABLET ONE ×3 (08:19→21:02)
[2019-01-21] MEDS: METHYLPHENIDATE 5 MG TABLET PO SCH ×2 (08:29→14:00)
[2019-01-21] MEDS: ENOXAPARIN 40 MG/0.4 ML SQ SCH (08:29)
[2019-01-21] MEDS: CARBAMAZEPINE 200 MG TABLET PO SCH ×2 (08:29→21:08)
[2019-01-21] MEDS: MELOXICAM 15 MG TABLET PO SCH (08:29)
[2019-01-21] MEDS: TIZANIDINE 2MG TABLET PO SCH ×3 (08:30→21:08)
[2019-01-21] MEDS: PREGABALIN 25 MG CAPSULE PO SCH ×2 (08:30→21:08)
[2019-01-21] MEDS: CITALOPRAM 20 MG TABLET PO SCH (08:30)
[2019-01-21] MEDS: SODIUM CHLORIDE FLUSH 10ML SYR IVF SCH ×2 (08:32→21:07)
[2019-01-21 15:39] VITALS: BP 151/85
[2019-01-21 20:52] VITALS: BP 144/89
[2019-01-21] MEDS: DOXEPIN 100 MG CAPSULE PO SCH (21:07)
[2019-01-21] MEDS: LISINOPRIL 20 MG TABLET PO SCH (21:08)
[2019-01-22] MEDS: AMPICILLIN/SULBACTAM 3 GM in SODIUM CHLORIDE 0.9% 100 ML IV SCH ×4 (01:02→19:44)
[2019-01-22 01:12] VITALS: BP 128/74
[2019-01-22] MEDS: OXYcodone 5 MG/5 ML ORAL.SOL UDC PO PRN ×6 (02:20→22:59)
[2019-01-22 08:14] VITALS: BP 159/91
[2019-01-22] MEDS: ENOXAPARIN 40 MG/0.4 ML SQ SCH (08:24)
[2019-01-22] MEDS: PREGABALIN 25 MG CAPSULE PO SCH ×2 (08:25→21:00)
[2019-01-22] MEDS: SODIUM CHLORIDE FLUSH 10ML SYR IVF SCH ×2 (08:25→21:00)
[2019-01-22] MEDS: MELOXICAM 15 MG TABLET PO SCH (08:25)
[2019-01-22] MEDS: CARBAMAZEPINE 200 MG TABLET PO SCH ×2 (08:25→21:00)
[2019-01-22] MEDS: TIZANIDINE 2MG TABLET PO SCH ×3 (08:25→21:00)
[2019-01-22] MEDS: CITALOPRAM 20 MG TABLET PO SCH (08:25)
[2019-01-22] MEDS: METHYLPHENIDATE 5 MG TABLET PO SCH ×2 (08:35→14:06)
[2019-01-22] MEDS: SENNA/DOCUSATE TABLET PO PRN (10:41)
[2019-01-22 12:23] VITALS: BP 131/77
[2019-01-22] MEDS: DOXEPIN 100 MG CAPSULE PO SCH (21:00)
[2019-01-22] MEDS: LISINOPRIL 20 MG TABLET PO SCH (21:01)
[2019-01-22 21:10] VITALS: BP 150/97
[2019-01-23] MEDS: AMPICILLIN/SULBACTAM 3 GM in SODIUM CHLORIDE 0.9% 100 ML IV SCH ×4 (01:02→18:29)
[2019-01-23 02:37] VITALS: BP 120/70
[2019-01-23] MEDS: OXYcodone 5 MG/5 ML ORAL.SOL UDC PO PRN ×5 (03:50→21:23)
[2019-01-23 07:45] VITALS: BP 136/86
[2019-01-23] MEDS ORDERED: TIZANIDINE 4MG TABLET ONE (07:47)
[2019-01-23] MEDS: ENOXAPARIN 40 MG/0.4 ML SQ SCH (07:55)
[2019-01-23] MEDS: PREGABALIN 25 MG CAPSULE PO SCH ×2 (07:55→21:21)
[2019-01-23] MEDS: CITALOPRAM 20 MG TABLET PO SCH (07:56)
[2019-01-23] MEDS: TIZANIDINE 2MG TABLET PO SCH ×3 (07:56→21:22)
[2019-01-23] MEDS: CARBAMAZEPINE 200 MG TABLET PO SCH ×2 (07:56→21:22)
[2019-01-23] MEDS: MELOXICAM 15 MG TABLET PO SCH (07:56)
[2019-01-23] MEDS: SODIUM CHLORIDE FLUSH 10ML SYR IVF SCH ×2 (07:57→21:21)
[2019-01-23] MEDS: METHYLPHENIDATE 5 MG TABLET PO SCH ×2 (08:09→13:43)
[2019-01-23 10:53] LABS: BASOPHILS # (AUTO) 0.03 x10^3/uL (0-0.1); BASOPHILS % (AUTO) 1 % (0-1); EOSINOPHILS # (AUTO) 0.11 x10^3/uL (0-0.4); EOSINOPHILS % (AUTO) 3 % (1-7); LYMPHOCYTES # (AUTO) 1.16 x10^3/uL (1-3.4); LYMPHOCYTES % (AUTO) 29 % (22-44); MD NO; MEAN CORPUSCULAR HEMOGLOBIN 29.7 pg (27.5-34.5); MEAN CORPUSCULAR HGB CONC 32.4 g/dL (33.2-36.2); MEAN CORPUSCULAR VOLUME 91.7 fL (81-97); MEAN PLATELET VOLUME 7.7 fL (7.4-10.4); MONOCYTES # (AUTO) 0.46 x10^3/uL (0.2-0.8); MONOCYTES % (AUTO) 12 % (2-9); NEUTROPHILS % (AUTO) 56 % (42-75); PLATELET COUNT 318 x10^3/uL (130-400); RED BLOOD COUNT 3.98 x10^6/uL (4.38-5.82); RED CELL DISTRIBUTION WIDTH 14.8 % (9.4-14.8)
[2019-01-23] MEDS ORDERED: ZIPR20CA2 PO (10:53)
[2019-01-23] MEDS ORDERED: PREG25CA PO (10:53)
[2019-01-23] MEDS ORDERED: CITA20TA9 PO (10:53)
[2019-01-23] MEDS ORDERED: CARB200T4 PO (10:53)
[2019-01-23 11:05] LABS: ALBUMIN 3.2 g/dL (3.4-5.0); ANION GAP 6 mmol/L (5-15); CALCIUM 9.2 mg/dL (8.5-10.1); CHLORIDE 106 mmol/L (98-107)
[2019-01-23 11:12] LABS: ALANINE AMINOTRANSFERASE 16 U/L (12-78); ALKALINE PHOSPHATASE 132 U/L (45-117); BILIRUBIN,TOTAL 0.5 mg/dL (0.2-1.0); CREATININE 1.18 mg/dL (0.7-1.3)
[2019-01-23 12:16] LABS: HCT (SEDRATE) 36.5 % (39.2-51.8)
[2019-01-23 13:23] VITALS: BP 118/67
[2019-01-23] MEDS: HYDROcodone/APAP 10/325 MG TABLET PO PRN (18:29)
[2019-01-23 19:44] VITALS: BP 117/83
[2019-01-23] MEDS: LISINOPRIL 20 MG TABLET PO SCH (21:22)
[2019-01-23] MEDS: DOXEPIN 100 MG CAPSULE PO SCH (21:22)
[2019-01-24] MEDS: AMPICILLIN/SULBACTAM 3 GM in SODIUM CHLORIDE 0.9% 100 ML IV SCH ×4 (01:22→18:43)
[2019-01-24] MEDS: OXYcodone 5 MG/5 ML ORAL.SOL UDC PO PRN ×5 (01:24→20:21)
[2019-01-24 02:00] VITALS: BP 117/75
[2019-01-24 07:39] VITALS: BP 125/78
[2019-01-24] MEDS: METHYLPHENIDATE 5 MG TABLET PO SCH ×2 (07:44→13:50)
[2019-01-24] MEDS: MELOXICAM 15 MG TABLET PO SCH (07:44)
[2019-01-24] MEDS: PREGABALIN 25 MG CAPSULE PO SCH ×2 (07:44→20:20)
[2019-01-24] MEDS: CITALOPRAM 20 MG TABLET PO SCH (07:44)
[2019-01-24] MEDS: TIZANIDINE 2MG TABLET PO SCH ×3 (07:44→20:20)
[2019-01-24] MEDS: ENOXAPARIN 40 MG/0.4 ML SQ SCH (07:44)
[2019-01-24] MEDS: SODIUM CHLORIDE FLUSH 10ML SYR IVF SCH ×2 (07:45→20:20)
[2019-01-24] MEDS: CARBAMAZEPINE 200 MG TABLET PO SCH ×2 (07:48→20:20)
[2019-01-24 14:42] VITALS: BP 124/91
[2019-01-24 19:34] VITALS: BP 148/85
[2019-01-24] MEDS: LISINOPRIL 20 MG TABLET PO SCH (20:20)
[2019-01-24] MEDS: DOXEPIN 100 MG CAPSULE PO SCH (20:20)
[2019-01-25] MEDS: OXYcodone 5 MG/5 ML ORAL.SOL UDC PO PRN ×4 (00:34→13:31)
[2019-01-25] MEDS: AMPICILLIN/SULBACTAM 3 GM in SODIUM CHLORIDE 0.9% 100 ML IV SCH ×3 (01:05→13:25)
[2019-01-25 01:24] VITALS: BP 122/75
[2019-01-25 06:32] VITALS: BP 99/56
[2019-01-25] MEDS: ENOXAPARIN 40 MG/0.4 ML SQ SCH (09:13)
[2019-01-25] MEDS: CITALOPRAM 20 MG TABLET PO SCH (09:14)
[2019-01-25] MEDS: PREGABALIN 25 MG CAPSULE PO SCH (09:14)
[2019-01-25] MEDS: SODIUM CHLORIDE FLUSH 10ML SYR IVF SCH (09:14)
[2019-01-25] MEDS: TIZANIDINE 2MG TABLET PO SCH (09:14)
[2019-01-25] MEDS: METHYLPHENIDATE 5 MG TABLET PO SCH (09:15)
[2019-01-25] MEDS: CARBAMAZEPINE 200 MG TABLET PO SCH (09:15)
[2019-01-25] MEDS: MELOXICAM 15 MG TABLET PO SCH (09:15)
[2019-01-25 13:27] VITALS: BP 142/83
== END 2019-01-25 14:01 | DRG 492 ==
LOC: OR 14:50 → 4NOR 21:40 → OR 23:35
PROVIDERS: ADMIT Orthopaedic Surgery; ATTEND Orthopaedic Surgery
PROC: 0QPK04Z Removal of Internal Fixation Device from Left Fibula, Open Approach (ICD-10-PCS; 2019-01-10)
PROC: 0QSH04Z Reposition Left Tibia with Internal Fixation Device, Open Approach (ICD-10-PCS; 2019-01-10)
PROC: 0Y9L0ZZ Drainage of Left Ankle Region, Open Approach (ICD-10-PCS; 2019-01-10)
PROC: 0QSK04Z Reposition Left Fibula with Internal Fixation Device, Open Approach (ICD-10-PCS; principal; 2019-01-10 17:00)
PROC: 02HV33Z Insertion of Infusion Device into Superior Vena Cava, Percutaneous Approach (ICD-10-PCS; 2019-01-13)
PROC: B5181ZA Fluoroscopy of Superior Vena Cava using Low Osmolar Contrast, Guidance (ICD-10-PCS; 2019-01-13)
PROC: B548ZZA Ultrasonography of Superior Vena Cava, Guidance (ICD-10-PCS; 2019-01-13)
DX: T84.038A Mechanical loosening of other internal prosthetic joint, initial encounter (principal); E43 Unspecified severe protein-calorie malnutrition; S82.245A Nondisplaced spiral fracture of shaft of left tibia, initial encounter for closed fracture; M00.9 Pyogenic arthritis, unspecified; S82.65XA Nondisplaced fracture of lateral malleolus of left fibula, initial encounter for closed fracture; E66.01 Morbid (severe) obesity due to excess calories; I10 Essential (primary) hypertension; F41.9 Anxiety disorder, unspecified; F32.9 Major depressive disorder, single episode, unspecified; M66.372 Spontaneous rupture of flexor tendons, left ankle and foot; F90.9 Attention-deficit hyperactivity disorder, unspecified type; F10.11 Alcohol abuse, in remission; M54.9 Dorsalgia, unspecified; G89.29 Other chronic pain; F43.10 Post-traumatic stress disorder, unspecified; K05.6 Periodontal disease, unspecified; D64.9 Anemia, unspecified; Z82.49 Family history of ischemic heart disease and other diseases of the circulatory system; Z87.891 Personal history of nicotine dependence; S93.432S Sprain of tibiofibular ligament of left ankle, sequela; Z91.19 Patient's noncompliance with other medical treatment and regimen; Z79.899 Other long term (current) drug therapy; Z82.3 Family history of stroke; Z90.49 Acquired absence of other specified parts of digestive tract; Z68.36 Body mass index [BMI] 36.0-36.9, adult
CPT/HCPCS: 36415; 36573; 70100; 71045; 76000; 80048; 80053; 80202; 82040; 82565; 83735; 84100; 84520; 85025; 85651; 86140; 87040; 87070; 87075; 87205; 93005; C1713; G0378; J0295; J0690; J1100; J1170; J1650; J1885; J2175; J2250; J2405; J2704; J3010; J3370; C1751; J0330; J0360; J2270; J2370; J7040

== ENCOUNTER 2019-05-25 10:46 | Day surgery (SDC) | payer MEDICARE ==
[~2019-05-25] VITALS: Ht 182.9 cm; Wt 260.0 kg
[~2019-05-25 10:46] MED LIST changes: +AMOX-291 PO; +BUPIVACAINE/EPI 0.5% 1:200K ONE; +CARB200T4 PO; +HYDR25TA6 PO; +PREG50CA PO; +ZIPR20CA2 PO
[2019-05-25] MEDS ORDERED: LACTATED RINGERS 1,000 ML IV SCH (11:23)
[2019-05-25 11:26] VITALS: BP 160/95
[2019-05-25] MEDS ORDERED: ACETAMINOPHEN 500 MG TABLET PO ONE (11:30)
[2019-05-25] MEDS ORDERED: ONDANSETRON 2MG/ML, 2ML IV PRN (12:00)
[2019-05-25] MEDS ORDERED: MEPERIDINE/PF 25MG/ML,1ML IVPush PRN (12:00)
[2019-05-25] MEDS ORDERED: LABETALOL 5MG/ML, 20ML IV PRN (12:00)
[2019-05-25] MEDS ORDERED: EPHEDRINE 50 MG/ML, 1ML IVPush PRN (12:00)
[2019-05-25] MEDS ORDERED: PROMETHAZINE 25 MG/ML, 1ML IV PRN (12:00)
[2019-05-25] MEDS ORDERED: hydrALAzine 20 MG/ML, 1ML IV PRN (12:00)
[2019-05-25] MEDS ORDERED: OXYcodone 5 MG/5 ML ORAL.SOL UDC PO PRN (12:00)
[2019-05-25] MEDS ORDERED: FENTANYL PF 100 MCG/2ML ONE ×3 (12:33→14:07)
[2019-05-25] MEDS ORDERED: MIDAZOLAM 1 MG/ML, 2ML ONE (12:33)
[2019-05-25] MEDS ORDERED: EPHEDRINE 50 MG/ML, 1ML ONE (13:26)
[2019-05-25] MEDS ORDERED: ONDANSETRON 2MG/ML, 2ML ONE ×2 (13:35)
[2019-05-25] MEDS ORDERED: PROPOFOL 10 MG/ML, 20ML ONE (13:35)
[2019-05-25] MEDS ORDERED: CEFAZOLIN 1,000 MG ONE (13:35)
[2019-05-25] MEDS ORDERED: DEXAMETHASONE 4 MG/ML, 1ML ONE (13:35)
[2019-05-25] MEDS ORDERED: KETOROLAC 30 MG/1 ML ONE ×3 (13:35)
[2019-05-25] MEDS ORDERED: OXYcodone 5 MG/5 ML ORAL.SOL UDC ONE ×2 (14:07→14:11)
[2019-05-25] MEDS: FENTANYL PF 100 MCG/2ML IV PRN ×2 (14:10→14:15)
[2019-05-25] MEDS ORDERED: HYDROmorphone 2 MG/ML, 1ML ONE (14:14)
[2019-05-25] MEDS: HYDROmorphone 2 MG/ML, 1ML IVPush PRN ×2 (14:20→14:25)
== END 2019-05-25 17:55 | disposition home or self-care (01) ==
LOC: OUT 10:46
PROVIDERS: ATTEND Orthopaedic Surgery
DX: Z47.2 Encounter for removal of internal fixation device (principal); I10 Essential (primary) hypertension; F32.9 Major depressive disorder, single episode, unspecified; Z79.891 Long term (current) use of opiate analgesic; Z79.899 Other long term (current) drug therapy; Z87.891 Personal history of nicotine dependence; Z82.49 Family history of ischemic heart disease and other diseases of the circulatory system
CPT/HCPCS: 20694; J0690; J1100; J1170; J1885; J2250; J2405; J2704; J3010; J7120

== ENCOUNTER 2021-01-09 14:20 | Inpatient (IN) | payer SELFPAY ==
[~2021-01-09 14:20] MED LIST changes: -BUPIVACAINE/EPI 0.5% 1:200K ONE; +TIZA-106 PO; -TIZA2TAB2 PO
[2021-01-09] MEDS ORDERED: BISACODYL 10 MG SUPP PR PRN (15:30)
[2021-01-09] MEDS ORDERED: LORazepam 1MG TABLET PO PRN (15:30)
[2021-01-09] MEDS ORDERED: ONDANSETRON ODT 4 MG PO PRN (15:30)
[2021-01-09] MEDS ORDERED: POLYETHYLENE GLYCOL 17 GM PACKET PO PRN (15:30)
[2021-01-09] MEDS ORDERED: ACETAMINOPHEN 325 MG TABLET PO PRN (15:30)
[2021-01-09] MEDS ORDERED: DOCUSATE 100 MG CAPSULE PO PRN (15:30)
[2021-01-09] MEDS ORDERED: ZOLPIDEM 10MG TABLET PO PRN (16:00)
[2021-01-09 16:30] VITALS: BP_SYST 134; BP_SYST 174; BP_DIAS 115; BP_DIAS 95
[2021-01-09] MEDS ORDERED: LORazepam 2 MG/ML, 1ML ONE (17:03)
[2021-01-09 17:24] VITALS: BP 158/94
[2021-01-09] MEDS ORDERED: LORazepam 2 MG/ML, 1ML IVPush ONE (17:30)
[2021-01-09] MEDS ORDERED: PLEASE ENTER HEIGHT AND WEIGHT MC SCH (17:30)
[2021-01-09] MEDS ORDERED: LORazepam 1MG TABLET PO SCH (21:00)
[2021-01-10] MEDS ORDERED: THIAMINE 100MG TABLET PO SCH (09:00)
[2021-01-10] MEDS ORDERED: FOLIC ACID 1 MG TABLET PO SCH (09:00)
[2021-01-13] MEDS ORDERED: METH20TA5 PO (10:34)
[2021-01-13] MEDS ORDERED: LISI5TAB7 PO (10:34)
[2021-01-13] MEDS ORDERED: ZOLP5TAB6 PO (10:34)
[2021-01-13] MEDS ORDERED: ALPR1TAB2 PO (10:34)
[2021-01-13] MEDS ORDERED: ONDA4TAB7 PO (10:34)
== END 2021-01-09 17:20 | disposition short-term general hospital (02) | DRG 881 ==
LOC: 3E 14:20 → EDIP 15:23 → UNDOADMIN 15:23 → EDIP 16:26 → 3E 16:26
PROVIDERS: ADMIT Psychiatry & Neurology Psychosomatic Medicine; ATTEND Psychiatry & Neurology Psychosomatic Medicine
DX: F32.9 Major depressive disorder, single episode, unspecified (principal); R00.0 Tachycardia, unspecified; Z79.899 Other long term (current) drug therapy
CPT/HCPCS: 93005; J2060